=== PATIENT | male | born 1950 | race Caucasian/White ===

== ENCOUNTER 2019-08-07 18:06 | Emergency (ER) | payer OTHER ==
[~2019-08-07] VITALS: Ht 172.7 cm; Wt 98.4 kg
[~2019-08-07 18:06] MED LIST: ASPI81TA44 PO; CARV3.122 PO; CIPR-259 PO; OXYC-150 PO; SIMV20TA PO; TAMS0.4C32 PO
[2019-08-07 18:46] VITALS: BP 163/61
[2019-08-07] MEDS ORDERED: PRED20TA PO (19:51)
[2019-08-07] MEDS ORDERED: AZIT250T27 PO (19:51)
[2019-08-07] MEDS ORDERED: BENZ-16 PO (19:51)
[2019-08-07] MEDS ORDERED: ALBU8.5H8 IH (19:51)
[2019-08-07] MEDS ORDERED: ipratropium/albuterol 3ml nebule NEB ONE (19:55)
--- NOTE | 2019-08-07 20:03 | NUR ---
updated pt that we are waiting for RT to perform treatment. he is comfortable at this time
== END 2019-08-07 20:55 | disposition home or self-care (01) ==
LOC: ER 18:06
DX: J20.9 Acute bronchitis, unspecified (principal); I25.10 Atherosclerotic heart disease of native coronary artery without angina pectoris; E78.00 Pure hypercholesterolemia, unspecified; I25.2 Old myocardial infarction; Z95.1 Presence of aortocoronary bypass graft; Z98.890 Other specified postprocedural states; Z79.2 Long term (current) use of antibiotics; Z79.82 Long term (current) use of aspirin; Z79.899 Other long term (current) drug therapy
CPT/HCPCS: 94640; 94760; 99283

== ENCOUNTER 2020-07-30 12:17 | Observation (INO) | payer OTHER, MEDICARE ==
[~2020-07-30] VITALS: Ht 175.3 cm; Wt 81.9 kg
[~2020-07-30 12:17] MED LIST changes: +ALBU8.5H8 IH
[2020-07-30 13:17] LABS: BASOPHILS % (AUTO) 0.4 % (0-1); EOSINOPHILS # (AUTO) 0.2 X10'3 (0-0.9); EOSINOPHILS % (AUTO) 2.1 % (0-6); HEMATOCRIT 42.1 % (42.0-52.0); HEMOGLOBIN 14.4 g/dl (14.0-17.9); LYMPHOCYTES # (AUTO) 1.3 X10'3 (1.1-4.8); LYMPHOCYTES % (AUTO) 14.7 % (21-51); MEAN CORPUSCULAR HEMOGLOBIN 28.4 PG (27.0-31.0); MEAN CORPUSCULAR HGB CONC 34.3 g/dL (33.0-36.5); MEAN CORPUSCULAR VOLUME 82.9 FL (78-98); MEAN PLATELET VOLUME 7.4 FL (7.4-10.4); MONOCYTES # (AUTO) 0.4 X10'3 (0-0.9); MONOCYTES % (AUTO) 4.3 % (2-12); NEUTROPHILS # (AUTO) 7.1 X10'3 (1.8-7.7); NEUTROPHILS % (AUTO) 78.5 % (42-75); PLATELET COUNT 231 X10'3 (140-440); RED BLOOD COUNT 5.08 X10'6 (4.70-6.10); RED CELL DISTRIBUTION WIDTH 13.8 % (11.5-14.5); WHITE BLOOD COUNT 9.1 X10'3 (4.5-11.0)
[2020-07-30 13:39] LABS: ALANINE AMINOTRANSFERASE 19 U/L (12-78); ALBUMIN/GLOBULIN RATIO 1.1 (1.1-1.5); ALKALINE PHOSPHATASE 69 IU/L (46-116); ANION GAP 10 (8-16); ASPARTATE AMINO TRANSFERASE 19 U/L (10-37); BILIRUBIN,TOTAL 0.6 MG/DL (0.1-1.0); BLOOD UREA NITROGEN 15 MG/DL (7-18); BUN/CREATININE RATIO 14.2 (5.4-32.0); CALCIUM 9.1 MG/DL (8.5-10.1); CHLORIDE 104 MMOL/L (99-107); CREATININE 1.06 MG/DL (0.60-1.10); GLUCOSE 112 MG/DL (70-104); SODIUM 141 MMOL/L (135-145); TOTAL CARBON DIOXIDE 26.6 MMOL/L (24-32); TOTAL PROTEIN 7.7 G/DL (6.4-8.2); eGFR 69 ML/MIN
[2020-07-30] MEDS ORDERED: iohexol 350MG/ML 100ml bottle IV ONE (13:39)
[2020-07-30 14:44] LABS: CLARITY,URINE CLEAR (Clear); COLOR,URINE STRAW (Yellow); GLUCOSE, URINE NEGATIVE (Neg); KETONES,URINE NEGATIVE (Neg); LEUKOCYTE ESTERASE ,URINE NEGATIVE (Neg); NITRITES, URINE NEGATIVE (Neg); OCCULT BLOOD,URINE SMALL (Neg); PROTEIN,URINE NEGATIVE (Neg); UA COLLECTION TYPE CLN CATCH MIDSTREAM; UROBILINOGEN,URINE 0.2 E.U/dL (0.2-1.0)
[2020-07-30] MEDS ORDERED: LISI10TA27 PO (14:49)
[2020-07-30 14:55] LABS: BACTERIA,URINE FEW /HPF (Neg); RBC,URINE 0-2 /HPF (0-2); SQUAMOUS EPITHELIAL CELL,UR FEW /LPF (FEW); WBC,URINE 0-4 /HPF (0-4)
[2020-07-30] MEDS ORDERED: aspirin 81mg tab.chew PO ONE (15:00)
[2020-07-30] MEDS ORDERED: mag hydrox/Alum hydrox/simeth 30ml oral suspension PO PRN (15:10)
[2020-07-30] MEDS ORDERED: magnesium hydroxide 30ml (MOM) UD suspension PO PRN (15:10)
[2020-07-30] MEDS ORDERED: ondansetron/PF 4mg/2ml inj IV PRN (15:10)
[2020-07-30] MEDS ORDERED: acetaminophen 325mg tablet PO PRN (15:10)
[2020-07-30] MEDS ORDERED: LORazepam 1 MG tablet PO ONE (15:50)
[2020-07-30 15:52] LABS: CHOL/HDL RATIO 3.2 (0.00-4.99); CHOLESTEROL 164 MG/DL (0-200); HDL CHOLESTEROL 52 MG/DL (35-60); LDL CHOLESTEROL 79 MG/DL (50-100); TRIGLYCERIDES 130 MG/DL (20-135)
[2020-07-30] MEDS ORDERED: LORazepam 2 mg/ml vial IV ONE (16:01)
--- NOTE | 2020-07-30 17:05 | NUR ---
Received to room 1522c. A/O x4
[2020-07-30 17:14] VITALS: BP 162/82
[2020-07-30 18:15] VITALS: BP 162/82
--- NOTE | 2020-07-30 18:15 | NUR ---
RECEIVED REPORT FROM MILKA AND ASSUMED PT CARE
--- NOTE | 2020-07-30 18:26 | NUR ---
Report to Arelis DEAN
[2020-07-30] MEDS: carVEDilol 3.125mg tablet PO SCH (19:20)
[2020-07-30] MEDS: heparin, porcine 5000 units/ml vial SQ SCH (19:21)
[2020-07-30] MEDS: normal saline 1000ml 1,000 ML IV SCH (19:22)
[2020-07-30] MEDS ORDERED: non-formulary drug (Simvastatin (Zocor) 1 TAB) PO SCH (21:00)
[2020-07-30 21:20] VITALS: BP 148/79
[2020-07-31] MEDS: normal saline 1000ml 1,000 ML IV SCH ×2 (01:10→04:45)
[2020-07-31 01:20] VITALS: BP 127/77
[2020-07-31 06:00] VITALS: BP 140/86
--- NOTE | 2020-07-31 06:27 | NUR ---
REPORT TO TERRY DEAN
[2020-07-31 07:28] LABS: BASOPHILS % (AUTO) 0.3 % (0-1); EOSINOPHILS # (AUTO) 0.3 X10'3 (0-0.9); EOSINOPHILS % (AUTO) 4.4 % (0-6); HEMATOCRIT 40.4 % (42.0-52.0); HEMOGLOBIN 13.8 g/dl (14.0-17.9); LYMPHOCYTES # (AUTO) 1.6 X10'3 (1.1-4.8); MEAN CORPUSCULAR HEMOGLOBIN 28.9 PG (27.0-31.0); MEAN CORPUSCULAR HGB CONC 34.1 g/dL (33.0-36.5); MEAN CORPUSCULAR VOLUME 84.7 FL (78-98); MEAN PLATELET VOLUME 7.5 FL (7.4-10.4); MONOCYTES # (AUTO) 0.5 X10'3 (0-0.9); MONOCYTES % (AUTO) 8.7 % (2-12); NEUTROPHILS # (AUTO) 3.4 X10'3 (1.8-7.7); NEUTROPHILS % (AUTO) 58.6 % (42-75); PLATELET COUNT 208 X10'3 (140-440); RED BLOOD COUNT 4.77 X10'6 (4.70-6.10); RED CELL DISTRIBUTION WIDTH 14.1 % (11.5-14.5); WHITE BLOOD COUNT 5.8 X10'3 (4.5-11.0)
[2020-07-31 07:38] LABS: ALBUMIN 3.6 G/DL (3.4-5.0); ANION GAP 9 (8-16); BLOOD UREA NITROGEN 12 MG/DL (7-18); CALCIUM 8.6 MG/DL (8.5-10.1); CHLORIDE 105 MMOL/L (99-107); CREATININE 1.09 MG/DL (0.60-1.10); GLUCOSE 104 MG/DL (70-104); POTASSIUM 3.7 MMOL/L (3.5-5.1); SODIUM 142 MMOL/L (135-145); TOTAL CARBON DIOXIDE 27.6 MMOL/L (24-32); eGFR 66 ML/MIN
[2020-07-31] MEDS: carVEDilol 3.125mg tablet PO SCH (07:43)
[2020-07-31] MEDS: heparin, porcine 5000 units/ml vial SQ SCH (07:47)
[2020-07-31] MEDS ORDERED: aspirin 81mg tablet.DR PO SCH (08:00)
[2020-07-31] MEDS ORDERED: lisinopril 10 MG tablet PO SCH (08:00)
[2020-07-31] MEDS ORDERED: atorvastatin 10mg tablet PO SCH (08:00)
[2020-07-31 10:00] VITALS: BP 145/69
--- NOTE | 2020-08-01 12:49 | NUR ---
CASE MANAGEMENT DISCHARGE FOLLOW UP: T/c to pt, no answer, left message requesting callback. Addendum: 08/01/20 at 1302 by Maria R Tan RN [id number] Received return call from pt. Reports that he is feeling good; denies headache, CP, SOB/dyspnea, visual/auditory/speech changes. Verbalizes understanding of s/sx requiring further evaluation/emergent assistance. Verbalizes understanding of medications. Verbalizes compliance with MD discharge instructions. Verbalizes understanding of the importance in making/keeping follow-up appointments, has appointment with PCP next 08/07/20, @ 1500. States no further questions/concerns at this time.
== END 2020-07-31 15:55 | disposition home or self-care (01) ==
LOC: ER 12:18 → ED HOLD 15:07 → ORTHO 4S 17:05
PROVIDERS: ADMIT Family Medicine; ATTEND Family Medicine
DX: G45.9 Transient cerebral ischemic attack, unspecified (principal); I10 Essential (primary) hypertension; I25.10 Atherosclerotic heart disease of native coronary artery without angina pectoris; E78.5 Hyperlipidemia, unspecified; E78.00 Pure hypercholesterolemia, unspecified; I25.2 Old myocardial infarction; Z95.1 Presence of aortocoronary bypass graft; Z87.442 Personal history of urinary calculi; Z79.82 Long term (current) use of aspirin; Z79.899 Other long term (current) drug therapy
CPT/HCPCS: 36415; 70450; 70496; 70498; 70544; 70551; 71045; 80048; 80053; 80061; 81001; 85025; 85610; 86885; 86900; 86901; 87081; 92508; 92616; 93005; 93306; 93880; 96361; 96372; 96374; 97161; 99285; G0378; J1644; J2060; J7030; Q9967

== ENCOUNTER 2023-07-14 10:32 | Outpatient (CLI) | payer OTHER ==
[~2023-07-14 10:32] MED LIST changes: -ALBU8.5H8 IH; -CIPR-259 PO; +LISI10TA27 PO; -OXYC-150 PO; +SIMV-342 PO; -SIMV20TA PO; -TAMS0.4C32 PO
== END 2023-07-14 23:59 | disposition home or self-care (01) ==
LOC: CARD DIAG 10:32
PROVIDERS: ATTEND Chiropractor
DX: I34.81 Nonrheumatic mitral (valve) annulus calcification (principal); I25.9 Chronic ischemic heart disease, unspecified
CPT/HCPCS: 93306

== ENCOUNTER 2023-08-10 06:43 | Inpatient (IN) | payer OTHER, MEDICARE ==
[~2023-08-10] VITALS: Ht 172.7 cm; Wt 94.4 kg
[2023-08-10] VITALS (11 sets, daily range): BP systolic 143–183; BP diastolic 70–93; PULSE 57–103; RESP 12–20; TEMP 98.6; O2SAT 96–99
[2023-08-10 07:26] LABS: BASOPHILS % (AUTO) 0.4 % (0-1); EOSINOPHILS # (AUTO) 0.3 X10'3 (0-0.9); EOSINOPHILS % (AUTO) 4.3 % (0-6); HEMATOCRIT 40.1 % (42.0-52.0); HEMOGLOBIN 13.7 g/dl (14.0-17.9); LYMPHOCYTES % (AUTO) 32.3 % (21-51); MEAN CORPUSCULAR HEMOGLOBIN 28.7 PG (27.0-31.0); MEAN CORPUSCULAR HGB CONC 34.2 g/dL (33.0-36.5); MEAN CORPUSCULAR VOLUME 83.9 FL (78-98); MEAN PLATELET VOLUME 7.7 FL (7.4-10.4); MONOCYTES # (AUTO) 0.6 X10'3 (0-0.9); MONOCYTES % (AUTO) 9.3 % (2-12); NEUTROPHILS # (AUTO) 3.3 X10'3 (1.8-7.7); NEUTROPHILS % (AUTO) 53.7 % (42-75); PLATELET COUNT 193 X10'3 (140-440); RED BLOOD COUNT 4.78 X10'6 (4.70-6.10); RED CELL DISTRIBUTION WIDTH 14.2 % (11.5-14.5); WHITE BLOOD COUNT 6.2 X10'3 (4.5-11.0)
[2023-08-10 07:39] LABS: ALBUMIN 3.5 G/DL (3.4-5.0); ANION GAP 12 (8-16); BLOOD UREA NITROGEN 17 MG/DL (7-18); CALCIUM 8.4 MG/DL (8.5-10.1); CHLORIDE 108 MMOL/L (99-107); CREATININE 1.13 MG/DL (0.60-1.10); GLUCOSE 102 MG/DL (70-104); POTASSIUM 3.7 MMOL/L (3.5-5.1); PRO BRAIN NATRIURETIC PEPTIDE 136 PG/ML (0-450); SODIUM 144 MMOL/L (135-145); TOTAL CARBON DIOXIDE 24.5 MMOL/L (24-32); eCRCL 55 ML/MIN; eGFR 63 ML/MIN
[2023-08-10] MEDS ORDERED: potassium Cl 40MEQ/1/2NS 520ml 520 ML IV PRN (10:25)
[2023-08-10] MEDS ORDERED: morphine 2 MG/ML inj. syringe IV PRN ×2 (10:25)
[2023-08-10] MEDS ORDERED: aminophylline 250mg/10ml inj. IV PRN (10:25)
[2023-08-10] MEDS ORDERED: acetaminophen 325mg tablet PO PRN ×2 (10:25)
[2023-08-10] MEDS ORDERED: HYDROcodone/acetaminophen 10/325mg tab PO PRN (10:25)
[2023-08-10] MEDS ORDERED: magnesium hydroxide 30ml (MOM) UD suspension PO PRN (10:25)
[2023-08-10] MEDS ORDERED: ondansetron 4mg rapidly disintigrating tab PO PRN (10:25)
[2023-08-10] MEDS ORDERED: magnesium Cl slow-release 64mg tablet PO PRN (10:25)
[2023-08-10] MEDS ORDERED: HYDROcodone/acetaminophen 5mg/325mg tablet PO PRN (10:25)
[2023-08-10] MEDS ORDERED: magnesium 2GM in 50ml NS 50 ML IV PRN (10:25)
[2023-08-10] MEDS ORDERED: magnesium 4gm in 100ml NS 100 ML IV PRN (10:25)
[2023-08-10] MEDS ORDERED: metoprolol tartrate 1mg/ml inj IV PRN (10:25)
[2023-08-10] MEDS ORDERED: mag hydrox/Alum hydrox/simeth 30ml oral suspension PO PRN (10:25)
[2023-08-10] MEDS ORDERED: nitroGLYCERIN 0.4mg SUBLingual tab SL PRN ×2 (10:25)
[2023-08-10] MEDS ORDERED: ondansetron/PF 4mg/2ml inj IV PRN (10:25)
[2023-08-10] MEDS ORDERED: potassium Cl 20 mEq SR tablet PO PRN ×2 (10:25)
[2023-08-10 11:03] LABS: HEMOGLOBIN A1C 5.5 % (4.5-6.2)
[2023-08-10 11:09] LABS: CHOL/HDL RATIO 2.5 (0.00-4.99); CHOLESTEROL 136 MG/DL (0-200); HDL CHOLESTEROL 55 MG/DL (35-60); LDL CHOLESTEROL 59 MG/DL (50-100); THYROID STIMULATING HORMONE 2.43 ulU/ml (0.34-4.50); TRIGLYCERIDES 56 MG/DL (20-135)
[2023-08-10 11:20] LABS: MAGNESIUM 1.8 MG/DL (1.5-2.4)
[2023-08-10] MEDS: aspirin 81mg tab.chew PO ONE (11:35)
[2023-08-10] MEDS: regadenoson 0.4mg/5ml syringe IV PRN (13:42)
[2023-08-10] MEDS ORDERED: docusate sod 100mg capsule PO SCH (20:00)
[2023-08-10] MEDS ORDERED: heparin, porcine 5000 units/ml vial SQ SCH (20:00)
[2023-08-10] MEDS ORDERED: K and/or MAG REPLACEMENT MC SCH (20:00)
[2023-08-10] MEDS ORDERED: temazepam 15mg capsule PO PRN (21:00)
[2023-08-11] MEDS ORDERED: aspirin 325mg tablet PO SCH (08:30)
== END 2023-08-10 17:06 | disposition home or self-care (01) | DRG 313 ==
LOC: ER 06:44 → ED HOLD 10:30 → EDBEDREQ 12:39 → PCU 3S 13:30
PROVIDERS: ADMIT Family Medicine; ATTEND Family Medicine
PROC: 4A02XM4 Measurement of Cardiac Total Activity, External Approach (ICD-10-PCS; principal; 2023-08-10)
PROC: 3E033HZ Introduction of Radioactive Substance into Peripheral Vein, Percutaneous Approach (ICD-10-PCS; 2023-08-10)
DX: R07.89 Other chest pain (principal); I25.110 Atherosclerotic heart disease of native coronary artery with unstable angina pectoris; E78.00 Pure hypercholesterolemia, unspecified; I12.9 Hypertensive chronic kidney disease with stage 1 through stage 4 chronic kidney disease, or unspecified chronic kidney disease; N18.9 Chronic kidney disease, unspecified; Z79.899 Other long term (current) drug therapy; I25.2 Old myocardial infarction; Z95.5 Presence of coronary angioplasty implant and graft; Z95.1 Presence of aortocoronary bypass graft; Z87.442 Personal history of urinary calculi; Z79.82 Long term (current) use of aspirin
CPT/HCPCS: 36415; 71045; 78452; 80048; 80061; 83036; 83735; 83880; 84100; 84443; 84484; 85025; 93005; 93017; 99285; A9500; G0378; J2785